=== PATIENT | male | born 1955 | race Caucasian/White ===

== ENCOUNTER 2017-06-09 11:13 | Emergency (ER) | payer OTHER ==
[2017-06-09] MEDS ORDERED: MORPHINE 4 MG/ML SYR ONE ×2 (11:57→15:37)
[2017-06-09] MEDS ORDERED: NA CHLORIDE 0.9% 1,000 ML ONE (11:57)
[2017-06-09] MEDS ORDERED: ONDANSETRON 4 MG/2 ML VIAL ONE (11:57)
[2017-06-09 12:25] LABS: Absolute Lymphocytes (CBC) 2.4 K/uL (0.7-4.9); Absolute Monocytes 0.9 K/uL (0.1-1.3); Absolute Neutrophil 3.5 K/uL (1.8-8.0); Basophils % 1.4 % (0-1.3); Eosinophils % 3.3 % (0-4.4); Hematocrit 43.1 % (39.6-49.0); Lymphocytes % 33.9 % (15.3-44.8); MCH 29.3 pg (27.0-35.0); MPV 7.7 fL (7.6-11.3); Monocytes % 12.9 % (3.3-12.3)
[2017-06-09 12:30] LABS: Protime INR 2.73
[2017-06-09 12:45] LABS: Albumin 4.3 g/dL (3.2-5.5); Bilirubin Direct 0.1 mg/dL (0-0.2); Bilirubin Total 0.6 mg/dL (0.3-1.2); Protein, Total 7.8 g/dL (6.0-8.3)
[2017-06-09] MEDS ORDERED: LORazepam 2 MG/ML VIAL ONE (12:59)
[2017-06-09 14:09] LABS: Urine Blood NEGATIVE (NEG); Urine Glucose NEGATIVE (NEG); Urine Protein NEGATIVE (NEG)
--- NOTE | 2017-06-09 14:23 | RAD REPORT ---
EXAM DESCRIPTION: CTAbdomen Pelvis W Contrast - 06/09/2017 2:10 pm CLINICAL HISTORY: Abdominal pain. COMPARISON: 03/08/2007 TECHNIQUE: Biphasic CT imaging of the abdomen and pelvis was performed with 100 ml non-ionic IV cont rast. All CT scans are performed using dose optimization technique as appropriate and may include automated exposure control or mA/KV adjustment according to patient size. FINDINGS: The lung bases are clear. The liver, spleen, pancreas, adrenal glands and kidneys are within normal limits. No bowel obstruction, free air, free fluid or abscess. 4 cm length of sigmoid colon left lower quadra nt demonstrates moderate pericolonic inflammatory changes. Several diverticula are noted in this juventino on. This is most compatible with acute diverticulitis. The appendix is not identified as a discrete s tructure, however, no secondary findings of appendicitis are identified. No evidence of significant lymphadenopathy. No suspicious bony findings. IMPRESSION: Acute short segment diverticulitis involving the left lower quadrant sigmoid colon. No p eridiverticular abscess.
[2017-06-09] MEDS ORDERED: CEFTRIAXONE/SWI 1gm 2 GM/20 ML SYR ONE (15:10)
[2017-06-09] MEDS ORDERED: METRONIDAZOLE 500mg IVPB 500 MG/100 ML BAG IV ONE (15:10)
--- NOTE | 2017-06-09 15:37 | EDPHYS ---
Physician Documentation [facility] Name: Adelfo Weller Age: 61 yrs Sex: Male : 1955 Arrival Date: 06/09/2017 Time: 11:16 Bed 24 Private MD: Jose Alejandro Powers E ED Physician Jason Veliz HPI: 06/09 14:34 This 61 yrs old Male presents to ER via Ambulatory with complaints of pm1 abdominal pain. 15:00 The patient presents with abdominal pain in the left lower quadrant. Onset: The pm1 symptoms/episode began/occurred 5 day(s) ago. The symptoms do not radiate. Associated signs and symptoms: Pertinent negatives: nausea, vomiting, and diarrhea, chest pain, dysuria, fever, shortness of breath. The symptoms are described as achy, constant. Modifying factors: The symptoms are alleviated by antibiotics. the symptoms are aggravated by touching the area. Severity of pain: in the emergency department the pain has improved. The patient has experienced similar episodes in the past, multiple times. The patient has been recently seen by a physician: Colonoscopy with Dr Rasheed 2 weeks ago. Historical: - Allergies: 11:30 No Known Allergies; tw2 - Home Meds: 12:29 Flagyl Oral [Active]; Levaquin Oral [Active]; Xarelto oral oral [Active]; tizanidine sv oral oral [Active]; gabapentin oral oral [Active]; atorvastatin oral oral [Active]; Stool Softener oral oral [Active]; colon cleanse [Active]; PreserVision AREDS oral oral [Active]; - PMHx: 11:30 Diverticulitis; tw2 15:30 PE; DVT; sv - PSHx: 11:30 Colostomy; tw2 12:29 colostomy reversal; dissection and reconstruction of ventral hernia; sv - Immunization history:: Adult Immunizations up to date. - Social history:: Smoking status: Patient/guardian denies using tobacco, Patient uses nicotine gum. ROS: 15:00 Constitutional: Negative for fever, chills, and weight loss. Fever 5 days ago that pm1 resolved Eyes: Negative for injury, pain, redness, and discharge, ENT: Negative for injury, pain, and discharge, Neck: Negative for injury, pain, and swelling, Cardiovascular: Negative for chest pain, palpitations, and edema, Respiratory: Negative for shortness of breath, cough, wheezing, and pleuritic chest pain. 15:00 Back: Negative for injury and pain, : Negative for injury, bleeding, discharge, and swelling, MS/Extremity: Negative for injury and deformity, Skin: Negative for injury, rash, and discoloration, Neuro: Negative for headache, weakness, numbness, tingling, and seizure. 15:00 Abdomen/GI: Positive for abdominal pain, Negative for nausea, vomiting, and diarrhea. Exam: 15:00 Constitutional: This is a well developed, well nourished patient who is awake, alert, pm1 and in no acute distress. Head/Face: Normocephalic, atraumatic. Eyes: Pupils equal round and reactive to light, extra-ocular motions intact. Lids and lashes normal. Conjunctiva and sclera are non-icteric and not injected. Cornea within normal limits. Periorbital areas with no swelling, redness, or edema. ENT: Nares patent. No nasal discharge, no septal abnormalities noted. Tympanic membranes are normal and external auditory canals are clear. Oropharynx with no redness, swelling, or masses, exudates, or evidence of obstruction, uvula midline. Mucous membranes moist. Neck: Trachea midline, no thyromegaly or masses palpated, and no cervical lymphadenopathy. Supple, full range of motion without nuchal rigidity, or vertebral point tenderness. No Meningismus. Chest/axilla: Normal chest wall appearance and motion. Nontender with no deformity. No lesions are appreciated. Cardiovascular: Regular rate and rhythm with a normal S1 and S2. No gallops, murmurs, or rubs. Normal PMI, no JVD. No pulse deficits. Respiratory: Lungs have equal breath sounds bilaterally, clear to auscultation and percussion. No rales, rhonchi or wheezes noted. No increased work of breathing, no retractions or nasal flaring. 15:00 Back: No spinal tenderness. No costovertebral tenderness. Full range of motion. Skin: Warm, dry with normal turgor. Normal color with no rashes, no lesions, and no evidence of cellulitis. MS/ Extremity: Pulses equal, no cyanosis. Neurovascular intact. Full, normal range of motion. 15:00 Abdomen/GI: Inspection: abdomen appears normal, Bowel sounds: normal, Palpation: soft, mild abdominal tenderness, in the left lower quadrant, mass, is not appreciated, rebound tenderness, is not appreciated. 15:00 Neuro: Orientation: is normal, Motor: is normal, moves all fours. Vital Signs: 11:28 BP 137 / 101; Pulse 77; Resp 18; Temp 98.4(O); Pulse Ox 97% on R/A; Weight 113.4 kg tw2 (R); Height 6 ft. 4 in. (193.04 cm); Pain 7/10; 13:05 BP 150 / 99; Pulse 70; Resp 18; Pulse Ox 99% ; sv 14:16 BP 128 / 83; Pulse 72; Resp 16; Pulse Ox 99% ; tl3 15:29 BP 137 / 97; Pulse 66; Resp 20; Pulse Ox 100% ; sv 16:39 BP 129 / 75; Pulse 60; Resp 17; Pulse Ox 99% on R/A; rk2 11:28 Body Mass Index 30.43 (113.40 kg, 193.04 cm) tw2 MDM: 11:45 Patient medically screened. pm1 15:29 Data reviewed: vital signs. Data interpreted: Pulse oximetry: on room air is 99 %. pm1 Interpretation: normal. Counseling: I had a detailed discussion with the patient and/or guardian regarding: the historical points, exam findings, and any diagnostic results supporting the discharge/admit diagnosis, lab results, radiology results, the need for further work-up and treatment in the hospital. 15:44 Physician consultation: Maureen Tijerina MD was called at 15:44, was contacted at 15:44, pm1 regarding admission, patient's condition, and will see patient in ED. 16:30 Physician consultation: Maureen Tijerina MD Patient was seen in the ER and discharged home pm1 with antibiotics and and pain medications. Dr. Tijerina consulted with Dr. Rasheed and has a follow up with Dr. Rasheed scheduled in a few days. 06/09 11:55 Order name: Basic Metabolic Panel; Complete Time: 12:57 pm1 06/09 11:55 Order name: CBC with Diff; Complete Time: 12:57 pm1 06/09 11:55 Order name: Hepatic Function; Complete Time: 12:57 pm1 06/09 11:55 Order name: Lipase; Complete Time: 12:57 pm1 06/09 11:56 Order name: PT-INR; Complete Time: 12:57 pm1 06/09 11:56 Order name: Ptt, Activated; Complete Time: 12:57 pm06/09 11:55 Order name: CT Abd/Pelvis - W/Contrast; Complete Time: 14:26 pm06/09 14:00 Order name: Urine Dipstick--Ancillary (enter results); Complete Time: 14:26 mw2 06/09 11:55 Order name: IV Saline Lock; Complete Time: 12:20 pm06/09 11:55 Order name: Labs collected and sent; Complete Time: 12:20 pm06/09 11:55 Order name: Urine Dipstick-Ancillary (obtain specimen); Complete Time: 14:52 pm06/09 11:55 Order name: NPO; Complete Time: 12:30 pm1 Administered Medications: 12:11 Drug: NS 0.9% 1000 ml Route: IV; Rate: 1000 ml; Site: left antecubital; sv 13:05 Follow up: Response: No adverse reaction; IV Status: Completed infusion; IV Intake: sv 1000ml 12:11 Drug: Zofran 4 mg Route: IVP; Site: left antecubital; sv 13:05 Follow up: Response: No adverse reaction sv 12:13 Drug: morphine 4 mg Route: IVP; Site: left antecubital; sv 13:05 Follow up: Response: No adverse reaction sv 12:55 Drug: Ativan 0.5 mg Route: IVP; Site: left antecubital; sv 13:15 Follow up: Response: No adverse reaction sv 13:15 Drug: Rocephin 2 grams Route: IV; Rate: calculated rate; Site: left antecubital; sv 13:23 Follow up: Response: No adverse reaction; IV Status: Completed infusion; IV Intake: 20mlsv 15:23 CANCELLED (Duplicate Order): Rocephin - (cefTRIAXone) 2 grams IVPB once over 30 mins; sv (mix in 100 mL NS) 15:23 Drug: Flagyl 500 mg Volume: 100 ml; Route: IVPB; Rate: 200 ml/hr; Infused Over: 30 sv mins; Site: left antecubital; 16:00 Follow up: Response: No adverse reaction; IV Status: Completed infusion rk2 15:41 Drug: morphine 4 mg Route: IVP; Site: left antecubital; sv 16:12 Follow up: Response: No adverse reaction sv Disposition: 17:17 Co-signature as Attending Physician, Jason Veliz MD. rn Disposition: 06/09/17 16:12 Discharged to Home. Impression: Diverticulitis of large intestine without perforation or abscess without bleeding - Stable. Chronic Issue. No woresning. . - Condition is Stable. - Discharge Instructions: Constipation, Adult, Diverticulitis, [id number], Soft-Food Meal Plan, Clear Liquid Diet, [id number]. - Prescriptions for Flagyl 500 mg Oral Tablet - take 1 tablet by ORAL route every 8 hours for 10 days; 30 tablet. Levaquin 500 mg Oral Tablet - take 1 tablet by ORAL route once daily for 10 days; 10 tablet. Tylenol- Codeine #3 300-30 mg Oral Tablet - take 2 tablet by ORAL route every 6 hours As needed; 30 tablet. - Medication Reconciliation Form, Thank You Letter, Antibiotic Education, Prescription Opioid Use form. - Follow up: Yaniv Rasheed MD; When: 1 week. - Problem is chronic. - Symptoms are resolved. Signatures: Dispatcher [employer] Deanna Lyons RN RN Jason Reynolds MD MD rn Marinas, Patrick, [employer] pm1 aMry Juares RN RN tw2 Maureen Tijerina MD MD rp3 Gina Burrows RN RN rk2 Corrections: (The following items were deleted from the chart) 12:29 11:30 PSHx: Hernia repair; tw2 sv 15:23 14:58 Rocephin - (cefTRIAXone) 2 grams IVPB once over 30 mins; (mix in 100 mL NS) sv ordered. pm1 15:23 15:23 Rocephin - (cefTRIAXone) 2 grams IVPB once over 30 mins; (mix in 100 mL NS) sv ordered. sv
--- NOTE | 2017-06-09 15:37 | ER ---
Nurse's Notes [facility] Name: Adelfo Weller Age: 61 yrs Sex: Male : 1955 Arrival Date: 06/09/2017 Time: 11:16 Bed 24 Private MD: Jose Alejandro Powers E Diagnosis: Diverticulitis of large intestine without perforation or abscess without bleeding-Stable. Chronic Issue. No woresning. Presentation: 06/09 11:29 Presenting complaint: Patient states: "its my diverticulitis, its hurts on my left side tw2 really bad, i havent eaten in 2 days". Transition of care: patient was not received from another setting of care. Onset of symptoms was June 09, 2017. Initial Sepsis Screen: Does the patient meet any 2 criteria? No. Patient's initial sepsis screen is negative. Does the patient have a suspected source of infection?. Care prior to arrival: None. 11:29 Method Of Arrival: Ambulatory tw2 11:29 Acuity: ONEAL 3 tw2 Historical: - Allergies: 11:30 No Known Allergies; tw2 - Home Meds: 12:29 Flagyl Oral [Active]; Levaquin Oral [Active]; Xarelto oral oral [Active]; tizanidine sv oral oral [Active]; gabapentin oral oral [Active]; atorvastatin oral oral [Active]; Stool Softener oral oral [Active]; colon cleanse [Active]; PreserVision AREDS oral oral [Active]; - PMHx: 11:30 Diverticulitis; tw2 15:30 PE; DVT; sv - PSHx: 11:30 Colostomy; tw2 12:29 colostomy reversal; dissection and reconstruction of ventral hernia; sv - Immunization history:: Adult Immunizations up to date. - Social history:: Smoking status: Patient/guardian denies using tobacco, Patient uses nicotine gum. Screenin:05 Abuse screen: Denies threats or abuse. Denies injuries from another. Nutritional sv screening: No deficits noted. Tuberculosis screening: No symptoms or risk factors identified. Fall Risk None identified. Assessment: 12:05 General: Appears uncomfortable, obese, well developed, Behavior is calm, cooperative, sv appropriate for age. Pain: Complains of pain in right lower quadrant and left lower quadrant Pain currently is 7 out of 10 on a pain scale. Quality of pain is described as tender, Pain began 2-3 days ago. Is intermittent, Noted to be grimacing, Also complains of decreased appetite. Neuro: Level of Consciousness is awake, alert, obeys commands, Oriented to person, place, time, situation, Moves all extremities. Full function Gait is steady, Speech is normal. Cardiovascular: Patient's skin is warm and dry. Respiratory: Respiratory effort is even, unlabored, Respiratory pattern is regular, symmetrical. GI: Abdomen is round obese, Abd is soft X 4 quads Abdomen is tender to palpation in right lower quadrant and left lower quadrant Reports lower abdominal pain, intolerance of food, "I don't think its ruptured.". Derm: Skin is pink, warm \\T\\ dry. Musculoskeletal: Range of motion: intact in all extremities. 12:55 Reassessment: Patient and/or family updated on plan of care and expected duration. Pain sv level reassessed. Patient is alert, oriented x 3, equal unlabored respirations, skin warm/dry/pink. General: Behavior is anxious, Pt requesting anxiety medication. Informed Stephon ARMED SECURITY GUARD, medication ordered. 13:15 Reassessment: Patient and/or family updated on plan of care and expected duration. Pain sv level reassessed. Patient is alert, oriented x 3, equal unlabored respirations, skin warm/dry/pink. 15:41 Reassessment: Patient and/or family updated on plan of care and expected duration. Pain sv level reassessed. Patient is alert, oriented x 3, equal unlabored respirations, skin warm/dry/pink. 15:41 Pain: Complains of pain in left lower quadrant and right lower quadrant Pain currently sv is 7 out of 10 on a pain scale. Vital Signs: 11:28 BP 137 / 101; Pulse 77; Resp 18; Temp 98.4(O); Pulse Ox 97% on R/A; Weight 113.4 kg tw2 (R); Height 6 ft. 4 in. (193.04 cm); Pain 7/10; 13:05 BP 150 / 99; Pulse 70; Resp 18; Pulse Ox 99% ; sv 14:16 BP 128 / 83; Pulse 72; Resp 16; Pulse Ox 99% ; tl3 15:29 BP 137 / 97; Pulse 66; Resp 20; Pulse Ox 100% ; sv 16:39 BP 129 / 75; Pulse 60; Resp 17; Pulse Ox 99% on R/A; rk2 11:28 Body Mass Index 30.43 (113.40 kg, 193.04 cm) tw2 ED Course: 11:16 Patient arrived in ED. mr 11:16 Yaniv Rasheed MD is Private Physician. mr 11:16 Jose Alejandro Powers MD is Private Physician. mr 11:29 Triage completed. tw2 11:29 Arm band placed on. tw2 11:32 Stephon English NP is PHCP. pm1 11:32 Jason Veliz MD is Attending Physician. pm1 11:43 Deanna Abebe, SHASHANK is Primary Nurse. sv 12:05 Patient has correct armband on for positive identification. Placed in gown. Bed in low sv position. Call light in reach. Pulse ox on. NIBP on. Door closed. Head of bed elevated. 12:10 Initial lab(s) drawn, by me, sent to lab. Inserted saline lock: 20 gauge in left sv antecubital area, using aseptic technique. Blood collected. Flushed left antecubital with 5 ml normal saline. 12:48 Awaiting lab results, Awaiting CT Scan. sv 13:[address] via wheelchair. sv 14:11 CT Abd/Pelvis - W/Contrast In Process Unspecified. EDMS 14:[address]. tl3 15:36 Maureen Tijerina MD is Hospitalizing Provider. pm1 16:11 Yaniv Rasheed MD is Referral Physician. rp3 16:29 Report given to Gina ENCARNACION. sv 16:32 Primary Nurse role handed off by Deanna Abebe RN sv 16:40 No provider procedures requiring assistance completed. IV discontinued. rk2 Administered Medications: 12:11 Drug: NS 0.9% 1000 ml Route: IV; Rate: 1000 ml; Site: left antecubital; sv 13:05 Follow up: Response: No adverse reaction; IV Status: Completed infusion; IV Intake: sv 1000ml 12:11 Drug: Zofran 4 mg Route: IVP; Site: left antecubital; sv 13:05 Follow up: Response: No adverse reaction sv 12:13 Drug: morphine 4 mg Route: IVP; Site: left antecubital; sv 13:05 Follow up: Response: No adverse reaction sv 12:55 Drug: Ativan 0.5 mg Route: IVP; Site: left antecubital; sv 13:15 Follow up: Response: No adverse reaction sv 13:15 Drug: Rocephin 2 grams Route: IV; Rate: calculated rate; Site: left antecubital; sv 13:23 Follow up: Response: No adverse reaction; IV Status: Completed infusion; IV Intake: 20mlsv 15:23 CANCELLED (Duplicate Order): Rocephin - (cefTRIAXone) 2 grams IVPB once over 30 mins; sv (mix in 100 mL NS) 15:23 Drug: Flagyl 500 mg Volume: 100 ml; Route: IVPB; Rate: 200 ml/hr; Infused Over: 30 sv mins; Site: left antecubital; 16:00 Follow up: Response: No adverse reaction; IV Status: Completed infusion rk2 15:41 Drug: morphine 4 mg Route: IVP; Site: left antecubital; sv 16:12 Follow up: Response: No adverse reaction sv Intake: 12:05 PO: 500ml (Contrast); Total: 500ml. sv 13:05 IV: 1000ml; Total: 1500ml. sv 13:23 IV: 20ml; Total: 1520ml. sv 12:[address] and informed Jenny in CT pt finished contrast. sv Outcome: 15:36 Decision to Hospitalize by Provider. pm1 16:12 Discharge ordered by . rp3 16:40 Discharged to home ambulatory. rk2 16:40 Condition: improved 16:40 Discharge instructions given to patient, Prescriptions given X 3. 16:43 Patient left the ED. rk2 Signatures: Dispatcher [employer] EDMS Deanna Abebe RN RN sv Beverly Machuca mr English Stephon, ARMED SECURITY GUARD ARMED SECURITY GUARD pm1 Mary Juares RN RN tw2 Maureen Tijerina MD MD rp3 Gina Burrows RN RN rk2 Bev Patel, SHASHANK RN tl3 Corrections: (The following items were deleted from the chart) 11:31 11:28 Pulse 77bpm; Resp 18bpm; Pulse Ox 97% RA; Temp 98.4F Oral; 113.4 kg Reported; tw2 Height 6 ft. 4 in.; BMI: 30.4; Pain 7/10; tw2 12:29 11:30 PSHx: Hernia repair; tw2 sv 16:31 13:15 Pain: Complains of pain in left lower quadrant and right lower quadrant Pain sv currently is 7 out of 10 on a pain scale. sv 16: 15:41 Reassessment: Patient and/or family updated on plan of care and expected sv duration. Pain level reassessed. Patient is alert, oriented x 3, equal unlabored respirations, skin warm/dry/pink. sv
[2017-06-09 16:48] VITALS: TEMP 98.4
[2017-06-09 16:52] VITALS: BP 129/75; O2SAT 99
== END 2017-06-09 16:43 | disposition home or self-care (01) ==
LOC: ER 11:13
DX: K57.32 Diverticulitis of large intestine without perforation or abscess without bleeding (principal); Z86.718 Personal history of other venous thrombosis and embolism; Z79.01 Long term (current) use of anticoagulants
CPT/HCPCS: 36415; 74177; 80048; 80076; 81003; 83690; 85025; 85610; 85730; J0696; J2405; J7030; 96361; 96365; 96375; 99284

== ENCOUNTER 2019-07-28 09:45 | Emergency (ER) | payer OTHER ==
--- NOTE | 2019-07-28 10:57 | RAD REPORT ---
EXAM DESCRIPTION: RAD - Hand Left 3 View - 07/28/2019 10:31 am CLINICAL HISTORY: Pain;Swelling COMPARISON: None. FINDINGS: No fracture, dislocation or periosteal reaction noted. Mild degenerative change present at the trapezium first metacarpal articulation. Small calcifications adjacent to the ulna styloid are p robably from old trauma. Lateral view shows an approximately 3 centimeter oval isodense mass over the dorsum of the carpal bones. No air or foreign body. No abnormal calcifications. Soft tissues overall are edematous. IMPRESSION: Approximately 3 centimeter oval isodense mass in the soft tissues over the dorsum of the left wrist. Hematoma would be most likely. Degenerative change without fracture.
--- NOTE | 2019-07-28 11:17 | ER ---
Nurse's Notes [facility] Name: Adelfo Weller Age: 63 yrs Sex: Male : 1955 Arrival Date: 07/28/2019 Time: 10:02 Bed 19 Private MD: Diagnosis: Hematoma of left wrist Presentation: 07/27 10:15 Chief complaint: Smash injury to left wrist while trimming trees 10 days ago. PMS hb intact. Coronavirus screen: Proceed with normal triage. Ebola Screen: No symptoms or risks identified at this time. Initial Sepsis Screen: Does the patient meet any 2 criteria? No. Patient's initial sepsis screen is negative. Does the patient have a suspected source of infection? No. Patient's initial sepsis screen is negative. Risk Assessment: Do you want to hurt yourself or someone else? Patient reports no desire to harm self or others. Onset of symptoms was July 18, 2019. 10:15 Method Of Arrival: Ambulatory hb 10:15 Acuity: ONEAL 4 hb Historical: - Allergies: 10:18 No Known Allergies; hb - Home Meds: 10:18 atorvastatin Oral [Active]; colon cleanse [Active]; gabapentin Oral [Active]; hb PreserVision AREDS Oral [Active]; Xarelto Oral [Active]; tizanidine Oral [Active]; Stool Softener Oral [Active]; - PMHx: 10:18 Diverticulitis; DVT; PE; hb - PSHx: 10:18 Colostomy; colostomy reversal; dissection and reconstruction of ventral hernia; hb - Immunization history:: Adult Immunizations up to date. - Social history:: Smoking status: Patient denies any tobacco usage or history of. Screenin:38 Abuse screen: Denies threats or abuse. Nutritional screening: No deficits noted. Tuberculosis screening: No symptoms or risk factors identified. Fall Risk None identified. Assessment: 10:36 General: Appears in no apparent distress. Behavior is calm, cooperative. Pain: Complains of pain in left hand Pain radiates to left wrist and palmar aspect of left forearm Pain currently is 6 out of 10 on a pain scale. Quality of pain is described as aching, Pain began 10 days ago. Neuro: Level of Consciousness is awake, alert, Oriented to person, place, time, situation. Cardiovascular: Capillary refill < 3 seconds Patient's skin is warm and dry. Respiratory: Airway is patent Respiratory effort is even, unlabored. GI: Derm: Skin is intact, is healthy with good turgor. Musculoskeletal: Circulation, motion, and sensation intact. Capillary refill < 3 seconds, Swelling present in left hand Reports pain in left hand since 10 days ago. Vital Signs: 10:15 BP 150 / 89; Pulse 86; Resp 16; Temp 97.9; Pulse Ox 100% ; Weight 113.4 kg; Height 6 hb ft. 4 in. (193.04 cm); Pain 6/10; 10:15 Body Mass Index 30.43 (113.40 kg, 193.04 cm) hb ED Course: 10:02 Patient arrived in ED. fj1 10:02 [facility] kb 10:02 Evaristo French MD is Attending Physician. kb 10:17 Triage completed. hb 10:18 Arm band placed on. hb 10:31 Hand Left 3 View XRAY In Process Unspecified. EDMS 10:36 Nataly Vazquez, RN is Primary Nurse. 10:38 Patient has correct armband on for positive identification. Bed in low position. Call light in reach. Side rails up X 1. Pulse ox on. NIBP on. 11:30 No provider procedures requiring assistance completed. Patient did not have IV access ah during this emergency room visit. 11:54 UPPER EXTREMITY VENOUS UNILATE In Process Unspecified. EDMS Administered Medications: No medications were administered Outcome: 11:17 Discharge ordered by . kb 11:30 Discharged to home ambulatory. 11:30 Condition: good 11:30 Discharge instructions given to patient, Instructed on discharge instructions, follow up and referral plans. Demonstrated understanding of instructions, follow-up care. 11:45 Patient left the ED. Signatures: Dispatcher [employer] EDMS Alexandra Lopez FNP-C FNP-Ckb Baxter, Heather, RN RN Peterson Meneses fj Nataly Vazquez RN RN
--- NOTE | 2019-07-28 11:17 | EDPHYS ---
Physician Documentation [facility] Name: Adelfo Weller Age: 63 yrs Sex: Male : 1955 Arrival Date: 07/28/2019 Time: 10:02 Bed 19 Private MD: ED Physician Evaristo French HPI: 07/27 10:43 This 63 yrs old Male presents to ER via Ambulatory with complaints of Hand kb Swelling. 10:43 The patient or guardian reports injury, pain, swelling. The complaints affect the kb dorsum of left hand and left wrist. Context: The problem was sustained at an office, resulted from a crush injury, trailer and tree limb. Onset: The symptoms/episode began/occurred 10 day(s) ago. Modifying factors: The symptoms are alleviated by nothing, the symptoms are aggravated by nothing. Associated signs and symptoms: The patient has no apparent associated signs or symptoms. Severity of symptoms: At their worst the symptoms were moderate, in the emergency department the symptoms have improved. The patient has not experienced similar symptoms in the past. The patient has not recently seen a physician. Pt reports he was trimming a tree 10 days ago and his hand got smashed between a limb and the trailer. States the swelling has gone down some, but he still has swelling to left wrist and hand so he wanted to get it checked out. States "I think it is just a hematoma." Full ROM to hand and wrist without distress. Historical: - Allergies: 10:18 No Known Allergies; hb - Home Meds: 10:18 atorvastatin Oral [Active]; colon cleanse [Active]; gabapentin Oral [Active]; hb PreserVision AREDS Oral [Active]; Xarelto Oral [Active]; tizanidine Oral [Active]; Stool Softener Oral [Active]; - PMHx: 10:18 Diverticulitis; DVT; PE; hb - PSHx: 10:18 Colostomy; colostomy reversal; dissection and reconstruction of ventral hernia; hb - Immunization history:: Adult Immunizations up to date. - Social history:: Smoking status: Patient denies any tobacco usage or history of. ROS: 10:41 Constitutional: Negative for fever, chills, and weight loss, Cardiovascular: Negative kb for chest pain, palpitations, and edema, Respiratory: Negative for shortness of breath, cough, wheezing, and pleuritic chest pain, Abdomen/GI: Negative for abdominal pain, nausea, vomiting, diarrhea, and constipation, Back: Negative for injury and pain, Neuro: Negative for headache, weakness, numbness, tingling, and seizure. 10:41 MS/extremity: Positive for pain, swelling, of the palmar aspect of left forearm and left wrist. Exam: 10:41 Constitutional: This is a well developed, well nourished patient who is awake, alert, kb and in no acute distress. Head/Face: Normocephalic, atraumatic. Chest/axilla: Normal chest wall appearance and motion. Nontender with no deformity. No lesions are appreciated. Cardiovascular: Regular rate and rhythm with a normal S1 and S2. No gallops, murmurs, or rubs. Normal PMI, no JVD. No pulse deficits. Respiratory: Lungs have equal breath sounds bilaterally, clear to auscultation and percussion. No rales, rhonchi or wheezes noted. No increased work of breathing, no retractions or nasal flaring. Abdomen/GI: Soft, non-tender, with normal bowel sounds. No distension or tympany. No guarding or rebound. No evidence of tenderness throughout. Neuro: Awake and alert, GCS 15, oriented to person, place, time, and situation. Cranial nerves II-XII grossly intact. Motor strength 5/5 in all extremities. Sensory grossly intact. Cerebellar exam normal. Normal gait. 10:41 Musculoskeletal/extremity: Extremities: grossly normal except: noted in the dorsum of left hand and left wrist: pain, swelling, hematoma, ROM: intact in all extremities, Circulation is intact in all extremities. Sensation intact. Vital Signs: 10:15 BP 150 / 89; Pulse 86; Resp 16; Temp 97.9; Pulse Ox 100% ; Weight 113.4 kg; Height 6 hb ft. 4 in. (193.04 cm); Pain 6/10; 10:15 Body Mass Index 30.43 (113.40 kg, 193.04 cm) hb MDM: 10:13 Patient medically screened. kb 10:40 Data reviewed: vital signs, nurses notes. Data interpreted: Pulse oximetry: on room air kb is 100 %. Interpretation: normal. 11:16 Counseling: I had a detailed discussion with the patient and/or guardian regarding: the kb historical points, exam findings, and any diagnostic results supporting the discharge/admit diagnosis, radiology results, the need for outpatient follow up, a family practitioner, to return to the emergency department if symptoms worsen or persist or if there are any questions or concerns that arise at home. 07/27 10:13 Order name: Hand Left 3 View XRAY; Complete Time: 11:02 kb 07/27 11:41 Order name: UPPER EXTREMITY VENOUS UNILATE EDMI Administered Medications: No medications were administered Disposition: 11:54 Co-signature as Attending Physician, Evaristo French MD I agree with the assessment and kdr plan of care. Disposition: 07/28/19 11:17 Discharged to Home. Impression: Hematoma of left wrist. - Condition is Stable. - Discharge Instructions: Hematoma, [id number]. - Medication Reconciliation Form, Thank You Letter, Antibiotic Education, Prescription Opioid Use form. - Follow up: Emergency Department; When: As needed; Reason: Worsening of condition. Follow up: Private Physician; When: 2 - 3 days; Reason: Recheck today's complaints, Continuance of care, Re-evaluation by your physician. Signatures: Dispatcher [employer] [facility] Alexandra Lopez, POUNCING MACHINE OPERATOR-C POUNCING MACHINE OPERATOR-Ckb Evaristo French MD MD [facility] Urszula Castorena RN RN Nataly Vazquez RN RN Corrections: (The following items were deleted from the chart) 11:41 10:14 Extremity Venous [employer]+[email or web address].RAD.BRZ ordered. [facility] 11:45 11:17 07/28/2019 11:17 Discharged to Home. Impression: Hematoma of left wrist. Condition is Stable. Forms are Medication Reconciliation Form, Thank You Letter, Antibiotic Education, Prescription Opioid Use. Follow up: Emergency Department; When: As needed; Reason: Worsening of condition. Follow up: Private Physician; When: 2 - 3 days; Reason: Recheck today's complaints, Continuance of care, Re-evaluation by your physician. kb
[2019-07-28 11:51] VITALS: BP 150/89; TEMP 97.9; O2SAT 100
--- NOTE | 2019-07-28 12:01 | RAD REPORT ---
EXAM DESCRIPTION: US - UPPER EXTREMITY VENOUS UNILATE - 07/28/2019 11:54 am CLINICAL HISTORY: Left arm pain and swelling COMPARISON: None. TECHNIQUE: Real-time sonographic evaluation of the left upper extremity deep venous systems was perf ormed. FINDINGS: Normal compressibility, flow augmentation, phasic flow and spontaneous flow are identified in the left upper extremity deep venous system. No intraluminal filling defects seen. Internal jugul ar and subclavian veins are normal as well. In the soft tissues over the dorsum of the wrist a 4 centimeter oval hypoechoic focus is present. A f ew small adjacent hypoechoic foci seen. This is believed to be the correlate to the plain film findin g. Old hematoma is most likely. IMPRESSION: No DVT in the left upper extremity. Approximately 4 centimeter oval hypoechoic mass over the dorsum of the wrist believed to be old hemat yash.
== END 2019-07-28 11:45 | disposition home or self-care (01) ==
LOC: ER 09:45
DX: S60.212A Contusion of left wrist, initial encounter (principal); W23.0XXA Caught, crushed, jammed, or pinched between moving objects, initial encounter; Y93.89 Activity, other specified; Y92.89 Other specified places as the place of occurrence of the external cause; Z86.718 Personal history of other venous thrombosis and embolism; Z79.01 Long term (current) use of anticoagulants
CPT/HCPCS: 93971; 99283

== ENCOUNTER 2020-10-24 06:22 | Day surgery (SDC) | payer OTHER ==
[2020-10-24] MEDS ORDERED: Ringers Lactate 1,000 ML IV ONE (07:10)
[2020-10-24] MEDS ORDERED: propofoL 200 MG/20 ML VIAL IV ONE (07:49)
[2020-10-24] MEDS ORDERED: LIDOCAINE 1% MPF 5 ML VIAL ONE (07:50)
--- NOTE | 2020-10-24 08:32 | ENDO RPT ---
[address], [address] COLONOSCOPY PROCEDURE REPORT EXAM DATE: 10/24/2020 PATIENT NAME: Adelfo Weller MR #: [id number] BIRTHDATE: 1955 ATTENDING: Yaniv Rasheed MD STATUS: outpatient PIECE GOODS PACKER: Eliane Argueta RN and Greer Bush INDICATIONS: The patient is a 65 yr old Male here for a colonoscopy due to personal history of colon polyps, personal history of colon polyps, personal history of colon polyps, and colon cancer screening PROCEDURE PERFORMED: Colonoscopy MEDICATIONS: Per Anesthesia. ESTIMATED BLOOD LOSS: None CONSENT: The patient understands the risks and benefits of the procedure and understands that these risks include, but are not limited to: sedation, allergic reaction, infection, perforation and/or bleeding. Alternative means of evaluation and treatment include, among others: physical exam, x-rays, and/or surgical intervention. The patient elects to proceed with this endoscopic procedure. DESCRIPTION OF PROCEDURE: During intra-op preparation period all mechanical medical equipment was checked for proper function. Hand hygiene and appropriate measures for infection prevention was taken. Procedure, possible complications, alternatives including, but not limited to possibility of bleeding, perforation, tear, infection, sepsis, need for surgery, need for blood transfusion, were explained to the patient. After the risks, benefits and alternatives of the procedure were thoroughly explained, Informed consent was verified, confirmed and timeout was successfully executed by the treatment team. The patient was placed in the left lateral position. A digital rectal exam was performed and revealed external hemorrhoids. After appropriate level of anesthesia, the scope was passed. The EC-[id number] ([id number]) endoscope was introduced through the anus and advanced to the cecum, which was identified by transillumination from the light source, the appendix, and the ileocecal valve. The quality of the prep was fair. The instrument was then slowly withdrawn as the colon was fully examined. Scope withdrawal time was . COLON FINDINGS: Diverticula was found throughout the entire examined colon. The opening was medium sized. Moderate sized internal and external hemorrhoids were found. Retroflexed views revealed no abnormalities. The scope was then completely withdrawn from the patient and the procedure terminated. ADVERSE EVENTS: There were no complications. IMPRESSIONS: 1. Diverticula throughout the entire examined colon 2. Moderate sized internal and external hemorrhoids RECOMMENDATIONS: 1. follow-up: office 1-2 week(s) 2. no seeds in diet RECALL: Return in 3-5 year(s) for Colonoscopy. Yaniv Rasheed MD eSigned: Yaniv Rasheed MD 10/24/2020 8:31 AM cc: Yaniv Rasheed M.D. CPT CODES: ICD9 CODES: PATIENT NAME: JaneeAdelfo MR#: [id number]
[2020-10-24 08:40] VITALS: BP 117/95; TEMP 97.9; O2SAT 99
== END 2020-10-24 08:46 | disposition home or self-care (01) ==
LOC: OR 06:22
PROVIDERS: ATTEND Surgery
PROC: 0DJD8ZZ Inspection of Lower Intestinal Tract, Via Natural or Artificial Opening Endoscopic (ICD-10-PCS; principal; 2020-10-24 07:30)
DX: Z86.010 Personal history of colon polyps (principal); K64.4 Residual hemorrhoidal skin tags; K64.8 Other hemorrhoids; K57.30 Diverticulosis of large intestine without perforation or abscess without bleeding
CPT/HCPCS: 45378; U0003; J2704; J7120

== ENCOUNTER 2022-10-13 11:31 | Inpatient (IN) | payer OTHER ==
--- OUTSIDE RECORDS SUMMARY | 2022-10-13 11:35 | XMS REPORT | Continuity of Care Document ---
:1955 Author Organization [facility] t Address [address] [facility] [address] [place] [address] Care Team Providers Name Role Phone Jose Alejandro Powers Attending Clinician Unavailable Cherelle Pickett Attending Clinician Shahab Attending Clinician Unavailable REY Attending Clinician Unavailable Alisa Leavitt Attending Clinician Trung Attending Clinician Unavailable Shahab Admitting Clinician Unavailable REY Admitting Clinician Unavailable Trung Admitting Clinician Unavailable Payers Payer Name Policy Type Policy Effective Date Expiration Date Sour ce Number [facility] [id number] 2020 (MEDICARE 00:00:00 REPLACEMENT HMO) [place] [id number] Common Spi rit [facility] Problems Condition Condition Condition Status Onset Resolution Last Treating Co mments Source Name Details Category Date Date Treatment Clinician Date [id number] Testicular Problem Active Co mmon hypofuncti Spirit on - [facility] [id number] Hypogonadi Problem Active Com mon sm in male [facility] [id number] ED Problem Active Common (erectile Spirit dysfunctio - [facility] n[facility] of [facility] [id number] Family Problem Active Common history of Spirit prostate - [facility] in [facility] [id number] Low Problem Active Common testostero Spirit ne [facility] [id number] Elevated Problem Active Comm on PSA [facility] [id number] BPH loc w Problem Active Com mon urin Spirit obs/TS [facility] Allergies, Adverse Reactions, Alerts This patient has no known allergies or adverse reactions. Social History Social Habit Start Date Stop Date Quantity Comments Source History of Tobacco Use Co mmon [facility] Sex Assigned At Com mon [facility] Smoking Status Start Date Stop Date Source Never Smoker Common [facility] Medications Ordered Filled Start Stop Current Ordering Indication Dosage Frequency Signature Comments Components Source Medication Medication Date Date Medication? Clinician (SIG) Name Name Anastrozole Anastrozole 2020-02 No Anastrozol 1 MG 1 MG 1-18 -28 e 1 MG 00:00: 00:00 00 :00 Anastrozole Anastrozole 2020-02- No Anastrozol 1 MG 1 MG 18 -18 e 1 MG 00:00: 00:00 00 :00 Flomax 0.4 Flomax 0.4 2022- No 1{capsu QD Flomax 0.4 MG MG 8-30 05-28 le} MG 00:00: 00:00 00 :00 Flomax 0.4 Flomax 0.4 2021- No 1{capsu QD Flomax 0.4 MG MG 8-30 06-16 le} MG 00:00: 00:00 00 :00 Centrum Centrum No Centrum Silver Silver Silver Adult 50+ - Adult 50+ - Adult 50+ - Xarelto 15 Xarelto 15 No 1{table QD Xarelto 15 MG MG t_with_ MG food} Pravastatin Pravastatin No 1{table QD Pravastati Sodium 20 Sodium 20 t} n Sodium MG MG 20 MG Stool Stool No 1{capsu QD Stool Softener Softener le_as_n Softener 100 MG 100 MG eeded} 100 MG Magnesium Magnesium No 1{capsu QD Magnesium 300 MG 300 MG le_with 300 MG _a_meal } Iron 325 Iron 325 No 1{table QD Iron 325 (65 Fe) MG (65 Fe) MG t} (65 Fe) MG PreserVisio PreserVisio No PreserVisi n AREDS - n AREDS - on AREDS - Glucosamine Glucosamine No Glucosamin Chond Cmp Chond Cmp e Chond Advanced - Advanced - Cmp Advanced - Colon Colon No Colon Cleanse - Cleanse - Cleanse - Glucosamine Glucosamine No Glucosamin Chond Cmp Chond Cmp e Chond Advanced - Advanced - Cmp Advanced - Stool Stool No 1{capsu QD Stool Softener Softener le_as_n Softener 100 MG 100 MG eeded} 100 MG Iron 325 Iron 325 No 1{table QD Iron 325 (65 Fe) MG (65 Fe) MG t} (65 Fe) MG Pravastatin Pravastatin No 1{table QD Pravastati Sodium 20 Sodium 20 t} n Sodium MG MG 20 MG Xarelto 15 Xarelto 15 No 1{table QD Xarelto 15 MG MG t_with_ MG food} PreserVisio PreserVisio No PreserVisi n AREDS - n AREDS - on AREDS - Colon Colon No Colon Cleanse - Cleanse - Cleanse - Magnesium Magnesium No 1{capsu QD Magnesium 300 MG 300 MG le_with 300 MG _a_meal } Centrum Centrum No Centrum Silver Silver Silver Adult 50+ - Adult 50+ - Adult 50+ - Vital Signs Vital Name Observation Time Observation Value Comments Source height 2021-07-18 11:45:00 74 [in_i] [facility] weight 2021-07-18 11:45:00 252 [lb_av] [facility] temperature 2021-07-18 11:45:00 98.4 [degF] [facility] bmi 2021-07-18 11:45:00 32.35 kg/m2 [facility] oximetry 2021-07-18 11:45:00 99 % [facility] respiratory rate 2021-07-18 11:45:00 16 /min Comm on Spirit - [facility] blood pressure 2021-07-18 11:45:00 120 mm[Hg] Common [facility] - systolic [facility] blood pressure 2021-07-18 11:45:00 84 mm[Hg] [facility] - diastolic [facility] height 2021-01-03 15:45:00 74 [in_i] [facility] weight 2021-01-03 15:45:00 225 [lb_av] [facility] temperature 2021-01-03 15:45:00 97.4 [degF] Common S [facility] bmi 2021-01-03 15:45:00 28.89 kg/m2 Common S [facility] oximetry 2021-01-03 15:45:00 95 % Common S [facility] blood pressure 2021-01-03 15:45:00 129 mm[Hg] Common [facility] - systolic [facility] blood pressure 2021-01-03 15:45:00 82 mm[Hg] Common [facility] - diastolic [facility] Procedures This patient has no known procedures. Encounters Start End Encounter Admission Attending Care Care Encounter Source Date/Time Date/Time Type Type Clinicians Facility Department ID 2022-05-08 Outpatient Powers, STLMLC [facility] [id number] Common 08:22:01 Jose Alejandro Alonso [facility] 2022-04-30 Outpatient Powers, STLMLC [facility] [id number] Common 10:29:01 Jose Alejandro Bryant [facility] 2021-03-13 Outpatient Powers, STLMLC [facility] [id number] Common 14:15:28 Jose Alejandro [id number] [facility] 2021-10-22 2021-10-22 SLOANE Villarreal [id number] CLAC [id number] [facility] 13:30:00 14:30:00 Piyush [id number] [facility] [id number] 2021-10-08 2021-10-08 Outpatient Williams_V DMG DMG [id number] [facility] 00:00:00 00:00:00 [facility] 2021-10-08 2021-10-08 Outpatient Williams_V DMG DMG 3149 [facility] 00:00:00 00:00:00 0823 [facility] 2021-08-30 2021-08-30 Outpatient CURRY_S DMG [facility] [id number] [facility] 07:15:00 07:15:00 0715 [facility] 2021-07-18 2021-07-18 OFFICE STLMLC STLC [id number] Co mmon 00:00:00 00:00:00 VISIT Pierre ESTAB PT - [facility] LEVEL [address] [facility] 2021-03-01 2021-03-01 SLOANE Alisa [id number] CLAC [id number] [facility] 14:30:00 15:30:00 Jarred [id number] [facility] [id number] 2021-01-22 2021-01-22 Outpatient JARRED_Dilcia DÍAZ [id number] [facility] 05:31:00 05:31:00 1207 [facility] 2021-01-03 2021-01-03 OFFICE [facility] [id number] Co mmon 00:00:00 00:00:00 VISIT Pierre CASTANO PT - [facility] LEVEL 4 [facility] 2020-09-19 2020-09-19 Outpatient Fred_Trell DÍAZ [id number] [facility] 09:53:00 09:53:00 0804 [facility] Results This patient has no known results.
[2022-10-13 13:42] LABS: Absolute Lymphocytes (CBC) 3.3 K/uL (0.7-4.9); Hematocrit 41.7 % (39.6-49.0); Lymphocytes % 24.2 % (15.3-44.8); MCV 88.6 fL (80-100); Platelets 395 thou/uL (152-406); RBC Red Blood Cell Count 4.71 M/uL (4.33-5.43)
[2022-10-13] MEDS ORDERED: NA CHLORIDE 0.9% 1,000 ML ONE (13:43)
[2022-10-13] MEDS ORDERED: ONDANSETRON 4 MG/2 ML VIAL ONE (13:43)
[2022-10-13 13:58] LABS: Albumin 3.3 g/dL (3.4-5.0); Bilirubin Total 0.4 mg/dL (0.2-1.0); Protein, Total 7.3 g/dL (6.4-8.2)
[2022-10-13 14:08] LABS: Potassium 3.8 mEq/L (3.5-5.1)
--- NOTE | 2022-10-13 15:08 | RAD REPORT ---
EXAM DESCRIPTION: CTAbdomen Pelvis W Contrast - 10/13/2022 2:40 pm CLINICAL HISTORY: Abdominal pain. Abd pain;Nausea / vomiting COMPARISON: Abdomen Pelvis W Contrast dated 06/09/2017; CT ABD PELVIS W CONTRAST dated 03/08/2007 TECHNIQUE: Biphasic CT imaging of the abdomen and pelvis was performed with 100 ml non-ionic IV cont rast. All CT scans are performed using dose optimization technique as appropriate and may include automated exposure control or mA/KV adjustment according to patient size. FINDINGS: The lung bases are clear.Small fat containing umbilical hernia. The is diffusely fatty. Spleen, pancreas, adrenal glands and kidneys are within normal limits. No bowel obstruction, free air, free fluid or abscess. 5 cm length of the left transverse colon shows focal inflammation along one wall, the medial wall. A diverticulum is likely present in this region as well. The adjacent fat is reticulated. The appendix is normal. No evidence of significant lymphad enopathy. No suspicious bony findings. IMPRESSION: 5 cm length of transverse colon shows focal wall thickening and inflammation along the m edial wall. This could be inflammatory secondary to diverticulitis or related to a mass. Recommend fo llow-up colonoscopy.
--- NOTE | 2022-10-13 15:37 | EDPHYS ---
Physician Documentation [facility] Name: Adelfo Weller Age: 67 yrs Sex: Male : 1955 Arrival Date: 10/13/2022 Time: 11:31 Bed 9 Private MD: ED Physician Jason Veliz HPI: 10/13 15:02 This 67 yrs old Male presents to ER via Ambulatory with complaints of Abdominal Pain. rn 15:02 The patient presents with abdominal pain in the left lower quadrant. Onset: The rn symptoms/episode began/occurred 1 month(s) ago. The symptoms do not radiate. Associated signs and symptoms: Pertinent positives: nausea and vomiting, constipation, Pertinent negatives: fever. The symptoms are described as intermittent, sharp. Modifying factors: The symptoms are alleviated by nothing, the symptoms are aggravated by touching the area. Severity of pain: At its worst the pain was moderate in the emergency department the pain is unchanged. The patient has experienced similar episodes in the past. Pt reports concern of diverticulitis, + nausea/vomiting/abd pain intermittent for a month but worse over last week. No fever. + LLQ abd pain. NOt having normal bowel movements. . Historical: - Allergies: 12:16 No Known Allergies; iw - PMHx: 12:16 Diverticulitis; DVT; PE; iw - PSHx: 12:16 abdominal reconstructive; hernia; iw - Immunization history:: Adult Immunizations up to date. - Social history:: Smoking status: Patient/guardian denies using tobacco, the patient reports quitting approximately 20 years ago. - Family history:: not pertinent. - Hospitalizations: : No recent hospitalization is reported. ROS: 15:02 Constitutional: Negative for fever, chills, and weight loss, Eyes: Negative for injury, rn pain, redness, and discharge, Neck: Negative for injury, pain, and swelling, Cardiovascular: Negative for chest pain, palpitations, and edema, Respiratory: Negative for shortness of breath, cough, wheezing, and pleuritic chest pain, Abdomen/GI: + abd pain and nausea/vomiting MS/Extremity: Negative for injury and deformity, Skin: Negative for injury, rash, and discoloration, Neuro: Negative for headache, weakness, numbness, tingling, and seizure. Exam: 15:02 Constitutional: This is a well developed, well nourished patient who is awake, alert, rn and in no acute distress. Cardiovascular: Regular rate and rhythm with a normal S1 and S2. No gallops, murmurs, or rubs. Normal PMI, no JVD. No pulse deficits. Respiratory: Lungs have equal breath sounds bilaterally, clear to auscultation and percussion. No rales, rhonchi or wheezes noted. No increased work of breathing, no retractions or nasal flaring. Abdomen/GI: soft, + LLQ tenderness and mid abd tenderness Skin: Warm, dry MS/ Extremity: Pulses equal, no cyanosis. Neurovascular intact. Full, normal range of motion. Equal circumference Neuro: Awake and alert, GCS 15 Vital Signs: 12:15 BP 132 / 99; Pulse 91; Resp 18; Temp 98.3; Pulse Ox 97% on R/A; Weight 115.67 kg; iw Height 6 ft. 4 in. ; Pain 8/10; 18:00 BP 149 / 78; Pulse 69; Resp 17; Pulse Ox 99% on R/A; me1 12:15 Body Mass Index 31.04 (115.67 kg, 193.04 cm) iw 12:15 Pain Scale: Adult iw MDM: 12:18 Patient medically screened. rn 15:34 Differential diagnosis: bowel obstruction, diverticulitis, gastritis, gastroesophageal rn reflux disease, non-specific abd pain, pancreatitis, Peptic Ulcer Disease, Ureterolithiasis. Data reviewed: vital signs, nurses notes, lab test result(s), radiologic studies, CT scan, and as a result, I will admit patient. Consideration of Admission/Observation Patient was admitted/placed on observation. Escalation of care including admission/observation considered. Management of patient was discussed with the following: Hospitalist: . Counseling: I had a detailed discussion with the patient and/or guardian regarding the historical points, exam findings, and any diagnostic results supporting the discharge/admit diagnosis, lab results, radiology results, the need for further work-up and treatment in the hospital. Response to treatment: the patient's symptoms have mildly improved after treatment, and as a result, I will admit patient. ED course: Pt with diverticulitis and pancreatitis, just got of of ozempic, will admit for pain control, and further treatment. . 10/13 12:22 Order name: CBC with Diff; Complete Time: 15:02 rn 08/28 12:22 Order name: CMP; Complete Time: 15:02 rn 10/13 12:22 Order name: Lipase; Complete Time: 15:02 rn 10/13 12:22 Order name: CT Abd/Pelvis - IV Contrast Only; Complete Time: 15:18 rn 10/13 12:22 Order name: IV Saline Lock; Complete Time: 13:29 rn 10/13 12:22 Order name: Labs collected and sent; Complete Time: 13:29 rn Administered Medications: 13:51 Drug: NS 0.9% IV 1000 ml Route: IV; Rate: 1 bolus; Site: right wrist; cm10 16:18 Follow up: IV Status: Completed infusion me1 13:51 Drug: Ondansetron IVP 4 mg Route: IVP; Site: right wrist; cm10 14:51 Follow up: Response: No adverse reaction me1 16:17 Follow up: Response: No adverse reaction me1 18:47 Drug: Ciprofloxacin PO 500 mg Route: PO; me1 19:00 Follow up: Response: No adverse reaction iw 18:47 Drug: metroNIDAZOLE PO 500 mg Route: PO; me1 19:00 Follow up: Response: No adverse reaction iw 10/14 07:43 Not Given (Other Intervention Used): Ciprofloxacin IVPB 400 mg 200 ml IVPB once over 60 iw mins 07:43 Not Given (Other Intervention Used): metroNIDAZOLE IVPB 500 mg 100 ml IVPB at 200 ml/hr iw once over 30 mins 07:47 Not Given (Other Intervention Used): morphine IVP or IV 4 mg IVP once over 4 mins iw Disposition Summary: 10/13/22 15:37 Hospitalization Ordered Hospitalization Status: Inpatient Admission rn Provider: Kevin Marin rn [facility] rn Condition: Stable rn Problem: new rn Symptoms: have improved rn Bed/Room Type: Standard rn Room Assignment: 424(10/13/22 17:42) bd Diagnosis - Diverticulitis of large intestine without perforation or abscess without bleeding rn - Acute pancreatitis without necrosis or infection, unspecified rn Forms: - Medication Reconciliation Form rn - SBAR form rn - Leadership Thank You Letter rn Signatures: Dispatcher [employer] Amelia Carranza Irene, RN RN iw Nieto, Roman, MD MD rn Martinez, Clarissa, RN RN cm10 Ema Daniels RN RN me1 Corrections: (The following items were deleted from the chart) 10/13 17:42 15:37 rn ayush
--- NOTE | 2022-10-13 15:37 | ER ---
Nurse's Notes [facility] Name: Adelfo Weller Age: 67 yrs Sex: Male : 1955 Arrival Date: 10/13/2022 Time: 11:31 Bed 9 Private MD: Diagnosis: Diverticulitis of large intestine without perforation or abscess without bleeding;Acute pancreatitis without necrosis or infection, unspecified Presentation: 10/13 12:15 Chief complaint: Patient states: "Last night, I started having abdominal pain that iw radiates to my back. I also having N/V/D. I have a history of Diverticulitis and this feels like it". Coronavirus screen: At this time, the client does not indicate any symptoms associated with coronavirus-19. Ebola Screen: No symptoms or risks identified at this time. Initial Sepsis Screen: Does the patient meet any 2 criteria? No. Patient's initial sepsis screen is negative. Does the patient have a suspected source of infection? No. Patient's initial sepsis screen is negative. Risk Assessment: Do you want to hurt yourself or someone else? Patient reports no desire to harm self or others. Onset of symptoms was October 13, 2022. 12:15 Method Of Arrival: Ambulatory iw 12:15 Acuity: ONEAL 3 iw Triage Assessment: 12:18 General: Appears uncomfortable, Behavior is calm, appropriate for age. Pain: Complains iw of pain in abdomen Pain radiates to back Pain currently is 8 out of 10 on a pain scale. Quality of pain is described as pressure, Pain began 1 day ago. GI: Abdomen is round non-distended, Reports diarrhea, nausea, vomiting. Derm: Skin is pink, warm \\T\\ dry. Musculoskeletal: Range of motion: intact in all extremities. Historical: - Allergies: 12:16 No Known Allergies; iw - PMHx: 12:16 Diverticulitis; DVT; PE; iw - PSHx: 12:16 abdominal reconstructive; hernia; iw - Immunization history:: Adult Immunizations up to date. - Social history:: Smoking status: Patient/guardian denies using tobacco, the patient reports quitting approximately 20 years ago. - Family history:: not pertinent. - Hospitalizations: : No recent hospitalization is reported. Screenin:00 [facility] ED Fall Risk Assessment (Adult) History of falling in the last 3 months, cm10 including since admission No falls in past 3 months (0 pts) Confusion or Disorientation No (0 pts) Intoxicated or Sedated No (0 pts) Impaired Gait No (0 pts) Mobility Assist Device Used No (0 pt) Altered Elimination No (0 pt) Score/Fall Risk Level 0 - 2 = Low Risk Oriented to surroundings, Maintained a safe environment. Abuse screen: Denies threats or abuse. Denies injuries from another. Nutritional screening: No deficits noted. Tuberculosis screening: No symptoms or risk factors identified. Assessment: 18:01 General: Appears in no apparent distress. comfortable, Behavior is calm, cooperative. cm10 Neuro: No deficits noted. Level of Consciousness is awake, alert, obeys commands, Oriented to person, place, time, situation. Respiratory: No deficits noted. Airway is patent Respiratory effort is even, unlabored, Respiratory pattern is regular, symmetrical. GI: Reports lower abdominal pain, upper abdominal pain. 18:10 General: IV infiltrated, unable to successfully gain IV access at this time. . me1 18:11 General:. me1 18:41 General: Per warehouse pricing and inventory clerk, Onel, patient is ok to go up to the room without IV me1 access at this time. . Vital Signs: 12:15 BP 132 / 99; Pulse 91; Resp 18; Temp 98.3; Pulse Ox 97% on R/A; Weight 115.67 kg; iw Height 6 ft. 4 in. ; Pain 8/10; 18:00 BP 149 / 78; Pulse 69; Resp 17; Pulse Ox 99% on R/A; me1 12:15 Body Mass Index 31.04 (115.67 kg, 193.04 cm) iw 12:15 Pain Scale: Adult iw ED Course: 11:34 Patient arrived in ED. im 12:16 Triage completed. iw 12:16 Arm band placed on. iw 12:17 Jason Veliz MD is Attending Physician. rn 13:15 Missed attempt(s): 24 gauge in right upper arm. Bleeding controlled, band aid applied, ds4 catheter tip intact. 13:29 CBC with Diff Sent. cm10 13:29 CMP Sent. cm10 13:29 Lipase Sent. cm10 13:29 Initial lab(s) drawn, by ia, sent to lab. Inserted saline lock: 20 gauge in right cm10 wrist, using aseptic technique. Blood collected. 14:39 IV discontinued, intact, bleeding controlled, No redness/swelling at site. Pressure cm10 dressing applied. 14:40 Inserted saline lock: 20 gauge in right upper arm, using aseptic technique. cm10 14:42 CT Abd/Pelvis - IV Contrast Only In Process Unspecified. EDMS 15:12 Myra Pickett, RN is Primary Nurse. iw 15:36 Kevin Marin MD is Hospitalizing Provider. rn 18:46 No provider procedures requiring assistance completed. iw Administered Medications: 13:51 Drug: NS 0.9% IV 1000 ml Route: IV; Rate: 1 bolus; Site: right wrist; cm10 16:18 Follow up: IV Status: Completed infusion me1 13:51 Drug: Ondansetron IVP 4 mg Route: IVP; Site: right wrist; cm10 14:51 Follow up: Response: No adverse reaction me1 16:17 Follow up: Response: No adverse reaction me1 18:47 Drug: Ciprofloxacin PO 500 mg Route: PO; me1 19:00 Follow up: Response: No adverse reaction iw 18:47 Drug: metroNIDAZOLE PO 500 mg Route: PO; me1 19:00 Follow up: Response: No adverse reaction iw 10/14 07:43 Not Given (Other Intervention Used): Ciprofloxacin IVPB 400 mg 200 ml IVPB once over 60 iw mins 07:43 Not Given (Other Intervention Used): metroNIDAZOLE IVPB 500 mg 100 ml IVPB at 200 ml/hr iw once over 30 mins 07:47 Not Given (Other Intervention Used): morphine IVP or IV 4 mg IVP once over 4 mins iw Medication: 10/13 18:00 VIS not applicable for this client. iw Outcome: 15:37 Decision to Hospitalize by Provider. rn 18:08 Admitted to Med/surg accompanied by nurse, via wheelchair, room 424, Report called to me1 SHASHANK Pablo 18:08 Condition: stable 18:08 Instructed on the need for admit. 18:47 Patient left the ED. me1 Signatures: Dispatcher [employer] EDMyra Stover, RN RN iw Jason Veliz MD MD rn Swanson, Donovan ds4 Shanon Roberts Clarissa, RN RN cm10 Ema Daniels RN RN me1
[2022-10-13] MEDS ORDERED: ACETAMINOPHEN 650MG/RECT SUPP PR PRN (17:24)
[2022-10-13] MEDS: PIPER TAZO 3.375 GM in NA CHLORIDE 0.9% 100 ML IV SCH (17:30)
[2022-10-13] MEDS ORDERED: NA CHLORIDE 0.9% 1,000 ML IV SCH (18:00)
[2022-10-13 18:39] VITALS: BMI 31.0
[2022-10-13] MEDS ORDERED: CIPROFLOXACIN HCL 500 MG TAB ONE (18:54)
[2022-10-13] MEDS ORDERED: metroNIDAZOLE 500 MG TABLET ONE (18:54)
--- NOTE | 2022-10-13 19:39 | P.HP ---
Certification for Inpatient Patient admitted to: Inpatient With expected LOS: >2 Midnights Patient will require the following post-hospital care: None Practitioner: I am a practitioner with admitting privileges, knowledge of patient current condition, hospital course, and medical plan of care. Services: Services provided to patient in accordance with Admission requirements found in Title 42 Section 412.3 of the Code of Federal Regulations Patient History Date of Service: 10/13/22 Reason for admission: Abd pain History of Present Illness: Patient is a 67-year-old male with a past medical history significant for diverticulitis, DVT, PE who presents with complaint of generalized abdominal pain that has been ongoing for the past 1 month. Patient rated pain as 9/10 in severity and described pain as sharp in quality. Patient indicated that pain radiates to his back. Patient reported associated signs and symptoms of chills, nausea, vomiting and abdominal distention. Patient reported that he was taken off Ozempic for weight loss 1 month by his PCP. Patient currently denies any other signs and symptoms. Symptoms are aggravated or relieved by nothing. Patient decided to present to the hospital due to worsening symptoms. Allergies NKDA Allergy (Uncoded 10/19/20 14:43) Unknown Home Medications: Docusate Sodium [Stool Softener] 100 mg PO BID 10/19/20 Ferrous Sulfate [Iron] 65 mg PO DAILY 10/19/20 Glucosam/Chond/MSM/Scandia/Hyal [Glucosamine-Chondr Complex Tab] 1 each PO DAILY 10/19/20 Magnesium Oxide [Magnesium] 500 mg PO DAILY 10/19/20 Pravastatin Sodium 20 mg PO DAILY 10/19/20 Rivaroxaban [Xarelto] 15 mg PO DAILY 10/19/20 Tamsulosin [Flomax] 0.4 mg PO DAILY 10/19/20 Vit C/E/Zn/Coppr/Lutein/Zeaxan [Preservision Areds 2 Softgel] 1 each PO BID 10/19/20 - Past Medical/Surgical History Diabetic: No -: DVT -: PE -: Diverticulitis -: hernia repair X 4 -: left elbow replacement -: face surgery X 2 - Social History Smoking Status: Former smoker Alcohol use: No CD- Drugs: No Caffeine use: Yes Place of Residence: Home Review of Systems General: Chills Eyes: Unremarkable ENT: Unremarkable Respiratory: Unremarkable Cardiovascular: Unremarkable Gastrointestinal: Nausea, Vomiting, Abdominal Pain, Distention Genitourinary: Unremarkable Musculoskeletal: Unremarkable Integumentary: Unremarkable Neurological: Unremarkable Lymphatics: Unremarkable Physical Examination - Physical Exam General: Alert, In no apparent distress, Oriented x3, Cooperative HEENT: Atraumatic, PERRLA, Mucous membr. moist/pink, EOMI, Sclerae nonicteric Neck: Supple, 2+ carotid pulse no bruit, No LAD, Without JVD or thyroid abnormality Respiratory: Clear to auscultation bilaterally, Normal air movement Cardiovascular: No edema, Regular rate/rhythm, Normal S1 S2 Capillary refill: <2 Seconds Gastrointestinal: Normal bowel sounds, Distended, Tenderness Musculoskeletal: No clubbing, No swelling, No tenderness Integumentary: No rashes, No significant lesion Neurological: Normal speech, Normal tone, Normal affect Lymphatics: No axilla or inguinal lymphadenopathy - Studies Laboratory Data (last 24 hrs) 10/13/22 10/13/22 13:26 13:26 WBC 13.70 H Hgb 14.2 Hct 41.7 Plt Count 395 Sodium 138 Potassium 3.8 BUN 16 Creatinine 0.85 Glucose 95 Total Bilirubin 0.4 AST 26 ALT 39 Alkaline Phosphatase 65 Lipase 2020 H Assessment and Plan - Plan --Acute diverticulitis. CT imaging indicates 5 cm length of transverse colon shows focal wall thickening and inflammation along the medial wall. This could be inflammatory secondary to diverticulitis or related to a mass. Recommend foll ow-up colonoscopy.". Patient placed on antibiotics. Gastroenterology consulted. Continue IV hydration. Will await further recommendations. --Acute pancreatitis. Lipase--2020. We will keep patient NPO. Continue IV hydration. Will reassess lipase in a.m. --Acute pain. We will manage pain with current pain medication regimen. --History of DVT\\PE. Patient on Xarelto at home. Patient currently NPO. Continue Lovenox subQ. --BPH\\hyperlipidemia\\LAURYN. Continue home medications when appropriate. --Class I obesity. Likely secondary to excess calories intake. Patient was recently taken off Ozempic for weight loss by his PCP. Patient counseled on weight reduction, diet and excise therapy. -- Nausea and vomiting. Antiemetics on board. Continue supportive care --DVT prophylaxis with Lovenox subQ. Discharge Plan: Home - Advance Directives Does patient have a Living Will: No Does patient have a Durable POA for Healthcare: No - Code Status/Comfort Care Code Status Assessed: Yes Physician Review: Patient Assessed, Agree with Above Assessment and Plan Critical Care: No
[2022-10-13] MEDS ORDERED: ENOXAPARIN 40 MG/0.4 ML SQ SCH (21:00)
[2022-10-13] MEDS ORDERED: ACETAMINOPHEN 325 MG TABLET PO ONE (21:19)
[2022-10-13 21:22] LABS: Magnesium 2.2 mg/dL (1.6-2.4); Phosphorus 2.8 mg/dL (2.5-4.9)
[2022-10-13] MEDS: MORPHINE 4 MG/ML SYR IV PRN (23:16)
[2022-10-13] MEDS: NA CHLORIDE 0.9% 1,000 ML IV SCH (23:17)
[2022-10-14] MEDS: PIPER TAZO 3.375 GM in NA CHLORIDE 0.9% 100 ML IV SCH ×3 (01:09→17:34)
[2022-10-14] MEDS: ONDANSETRON 4 MG/2 ML VIAL IV PRN ×2 (04:37→11:51)
[2022-10-14 05:29] LABS: Absolute Lymphocytes (CBC) 2.3 K/uL (0.7-4.9); Hematocrit 35.6 % (39.6-49.0); Lymphocytes % 19.3 % (15.3-44.8); MCV 88.6 fL (80-100); MPV 6.9 fL (7.6-11.3); Platelets 328 thou/uL (152-406); RBC Red Blood Cell Count 4.02 M/uL (4.33-5.43)
[2022-10-14] MEDS: LORazepam 2 MG/ML VIAL IV PRN ×2 (05:34→20:42)
[2022-10-14] MEDS: NA CHLORIDE 0.9% 1,000 ML IV SCH ×4 (05:34→18:25)
[2022-10-14 06:03] LABS: Potassium 3.6 mEq/L (3.5-5.1)
[2022-10-14] MEDS ORDERED: KCL 20 MEQ/100 mL IVPB 20 MEQ/100 ML BAG IV ONE (08:00)
[2022-10-14] MEDS: MORPHINE 4 MG/ML SYR IV PRN (08:28)
--- NOTE | 2022-10-14 17:48 | P.PN ---
Subjective Date of Service: 10/14/22 Chief Complaint: Abd pain Overnight, he spiked a temperature to 106.1 F, which responded to acetaminophen. He was afebrile this morning on rounds. He reports persistent generalized abdominal pain. He describes it as a dull aching and grades at a 5/10 in severity. He denies any chills, chest pain, shortness of breath, or palpitations. He denies any nausea, vomiting, or change in bowel habits. Review of Systems 10-point ROS is otherwise unremarkable Gastrointestinal: Abdominal Pain Physical Examination - Vital Signs Temperature: 97.7 F Blood Pressure: 123/66 Pulse: 73 Respirations: 16 Pulse Ox (%): 95 - Physical Exam General: Alert, In no apparent distress, Oriented x3 HEENT: Atraumatic, Mucous membr. moist/pink, Sclerae nonicteric Neck: JVD not distended Respiratory: Clear to auscultation bilaterally, Normal air movement Cardiovascular: No edema, Regular rate/rhythm, Normal S1 S2, No gallops, No rubs, No murmurs Gastrointestinal: Normal bowel sounds, Soft and benign, Non-distended, Tenderness (generalized) Musculoskeletal: No clubbing Integumentary: No rashes Neurological: Normal speech, Normal affect Assessment And Plan - Plan # Sepsis secondary to Tranverse Colitis # Possible Superimposed Acute Pancreatitis He met SIRS criteria based on temperature > 100.9 F and WBC > 12,000, and the suspected source is colitis. - Sepsis order set was initiated - Initial Lactate was 0.8 - Blood cultures drawn - Broad spectrum antibiotics started: Piperacillin-Tazobactam - In regards to fluids: - 30 mL/kg of IV fluids was not administered given SBP > 90, MAP > 65, lactic acid < 4 - Radiology: - CT abdomen/pelvis = "5 cm length of transverse colon shows focal wall thickening and inflammation along the medial wall. This could be inflammatory secondary to diverticulitis or related to a mass. Recommend follow-up colonoscopy." - Consulted Gastroenterology and spoke with Dr. Pantoja - recommendations appreciated - Recommended outpatient colonoscopy in 4-6 weeks - Start on clear liquid diet and advance as tolerated - Continue IV fluids and PRN pain control # History of DVT/PE - Continue home rivaroxaban # Dyslipidemia - Continue home atorvastatin Kevin Marin M.D.
[2022-10-14] MEDS: RIVAROXABAN 15 MG TABLET PO SCH (18:20)
[2022-10-14] MEDS: ATORVASTATIN 40 MG TAB PO SCH (20:42)
[2022-10-15] MEDS: PIPER TAZO 3.375 GM in NA CHLORIDE 0.9% 100 ML IV SCH ×3 (00:47→16:41)
[2022-10-15] MEDS: NA CHLORIDE 0.9% 1,000 ML IV SCH ×5 (00:48→20:00)
[2022-10-15 04:10] LABS: Specific Gravity 1.012 (1.005-1.030); Urine Bacteria None Seen /HPF (<20); Urine Bilirubin NEGATIVE (Negative); Urine Blood Negative (Negative); Urine Clarity Clear (Clear); Urine Color Light-Yellow (Yellow); Urine Glucose NEGATIVE (Negative); Urine Protein NEGATIVE (Negative); Urine RBC <5 /HPF (None Seen); Urine Urobilinogen Normal (Normal)
[2022-10-15 05:46] LABS: Absolute Lymphocytes (CBC) 2.5 K/uL (0.7-4.9); Hematocrit 33.7 % (39.6-49.0); Lymphocytes % 22.3 % (15.3-44.8); MCV 88.1 fL (80-100); MPV 7.1 fL (7.6-11.3); Platelets 305 thou/uL (152-406); RBC Red Blood Cell Count 3.82 M/uL (4.33-5.43)
[2022-10-15 05:49] LABS: Potassium 3.7 mEq/L (3.5-5.1)
[2022-10-15] MEDS: MORPHINE 4 MG/ML SYR IV PRN ×3 (08:35→21:05)
[2022-10-15] MEDS: ONDANSETRON 4 MG/2 ML VIAL IV PRN (08:35)
[2022-10-15] MEDS ORDERED: POTASSIUM 25 MEQ EFFERV TAB PO ONE (09:00)
--- NOTE | 2022-10-15 13:06 | P.PN ---
Subjective Date of Service: 10/15/22 Chief Complaint: Abd pain He remained afebrile overnight. His abdominal pain has improved somewhat. This morning, he grades the pain a 5/10 in severity. He states that the pain is generalized. He denies any fevers, chills, chest pain, shortness of breath, or palpitations. He denies any nausea, vomiting, or diarrhea. Review of Systems 10-point ROS is otherwise unremarkable Gastrointestinal: Abdominal Pain Physical Examination - Vital Signs Temperature: 98.5 F Blood Pressure: 136/85 Pulse: 71 Respirations: 18 Pulse Ox (%): 96 Assessment And Plan - Plan - Physical Exam General: Alert, In no apparent distress, Oriented x3 HEENT: Atraumatic, Mucous membr. moist/pink, Sclerae nonicteric Neck: JVD not distended Respiratory: Clear to auscultation bilaterally, Normal air movement Cardiovascular: No edema, Regular rate/rhythm, No murmurs Gastrointestinal: Normal bowel sounds, Soft and benign, Non-distended, Tenderness (minimal generalized) Musculoskeletal: No clubbing Integumentary: No rashes Neurological: Normal speech, Normal affect # Sepsis secondary to Tranverse Colitis # Possible Superimposed Acute Pancreatitis He met SIRS criteria based on temperature > 100.9 F and WBC > 12,000, and the suspected source is colitis. - Sepsis order set was initiated - Initial Lactate was 0.8 - Blood cultures drawn - Broad spectrum antibiotics started: Piperacillin-Tazobactam - In regards to fluids: - 30 mL/kg of IV fluids was not administered given SBP > 90, MAP > 65, lactic acid < 4 - Radiology: - CT abdomen/pelvis = "5 cm length of transverse colon shows focal wall thickening and inflammation along the medial wall. This could be inflammatory secondary to diverticulitis or related to a mass. Recommend follow-up colonoscopy." - Consulted Gastroenterology and spoke with Dr. Pantoja - recommendations appreciated - Recommended outpatient colonoscopy in 4-6 weeks - Advance diet as tolerated - Continue IV fluids and PRN pain control # History of DVT/PE - Continue home rivaroxaban # Dyslipidemia - Continue home atorvastatin Kevin Marin M.D.
[2022-10-15] MEDS: LORazepam 2 MG/ML VIAL IV PRN ×2 (13:44→19:56)
[2022-10-15] MEDS: RIVAROXABAN 15 MG TABLET PO SCH (16:41)
[2022-10-15] MEDS: ATORVASTATIN 40 MG TAB PO SCH (20:00)
[2022-10-16] MEDS: PIPER TAZO 3.375 GM in NA CHLORIDE 0.9% 100 ML IV SCH ×2 (01:03→08:30)
[2022-10-16] MEDS: MORPHINE 4 MG/ML SYR IV PRN ×2 (01:03→04:26)
[2022-10-16] MEDS: NA CHLORIDE 0.9% 1,000 ML IV SCH (04:21)
[2022-10-16 05:02] LABS: Magnesium 2.1 mg/dL (1.6-2.4); Phosphorus 2.6 mg/dL (2.5-4.9); Potassium 3.9 mEq/L (3.5-5.1)
[2022-10-16 07:57] VITALS: BP 138/87; TEMP 97.6
[2022-10-16] MEDS ORDERED: POTASS/SODIUM PHOSPHATE 1 PKT POWD.PACK PO SCH (08:00)
[2022-10-16] MEDS: ONDANSETRON 4 MG/2 ML VIAL IV PRN (08:29)
[2022-10-16 08:33] VITALS: O2SAT 92
--- NOTE | 2022-10-16 08:48 | P.DS ---
Admission Date: 10/13/22 Discharge Date: 10/16/22 Disposition: ROUTINE DISCHARGE Discharge Condition: GOOD Reason for Admission: Abd pain Consultations: 1. Gastroenterology Hospital Course: DIAGNOSES: # Sepsis secondary to Tranverse Colitis # Possible Superimposed Acute Pancreatitis # History of DVT/PE # Dyslipidemia # Fatty Liver # Small Umbilical Hernia HOSPITAL COURSE: Mr. Adelfo Weller is a pleasant 67 year old male with a past medical history significant for prior DVT/PE and dyslipidemia who was admitted to the [facility] on 10/13/2022 for abdominal pain. He was admitted to the Medicine service. Upon further evaluation, his CT abdomen/pelvis revealed, "5 cm length of transverse colon shows focal wall thickening and inflammation along the medial wall. This could be inflammatory secondary to diverticulitis or related to a mass. Recommend follow-up colonoscopy." He was placed NPO, started on IV antibiotics/fluids, and PRN pain medication. Gastroenterology was consulted and he was evaluated by Dr. Pantoja. He recommended outpatient follow-up with a colonoscopy in 4 weeks. Over the course of his hospitalization, his diet was advanced and his symptoms improved significantly. This morning, he stated that he felt significantly better and would like to be discharged home. On 10/16/2022, he was seen on rounds and deemed medically stable for discharge. He was discharged with instructions to schedule follow-up appointments with his PCP (Dr. Powers), with Gastroenterology (Dr. Pantoja), and with General Surgery (Dr. Elizalde). He was provided prescriptions for amoxicillin-clavulanate. He was given the opportunity to ask questions and reported no further questions. Furthermore, all questions were answered to the best of my ability. A copy of this discharge summary will be sent to the above providers to facilitate continuity of care. Today, I personally spent 25 minutes on his case, of which greater than 50% of the time was spent in patient education, counseling, and coordination of care as described above. - Physical Exam General: Alert, In no apparent distress, Oriented x3 HEENT: Atraumatic, Mucous membr. moist/pink, Sclerae nonicteric Neck: JVD not distended Respiratory: Clear to auscultation bilaterally, Normal air movement Cardiovascular: No edema, Regular rate/rhythm, No murmurs Gastrointestinal: Normal bowel sounds, Soft, Non-distended, No tenderness Musculoskeletal: No clubbing Integumentary: No rashes Neurological: Normal speech, Normal affect Vital Signs/Physical Exam: Temp Pulse Resp BP Pulse Ox 97.6 F 68 16 138/87 95 10/16/22 07:56 10/16/22 07:56 10/16/22 07:56 10/16/22 07:56 10/16/22 07:56 Laboratory Data at Discharge: WBC 11.30 thou/uL (4.3-10.9) H 10/15/22 05:13 Hgb 11.6 g/dL (13.6-17.9) L 10/15/22 05:13 Hct 33.7 % (39.6-49.0) L 10/15/22 05:13 Plt Count 305 thou/uL (152-406) 10/15/22 05:13 Sodium 136 mEq/L (136-145) 10/16/22 04:30 Potassium 3.9 mEq/L (3.5-5.1) 10/16/22 04:30 BUN 7 mg/dL (7-18) 10/16/22 04:30 Creatinine 0.92 mg/dL (0.70-1.30) 10/16/22 04:30 Glucose 116 mg/dL (74-106) H 10/16/22 04:30 Phosphorus 2.6 mg/dL (2.5-4.9) 10/16/22 04:30 Magnesium 2.1 mg/dL (1.6-2.4) 10/16/22 04:30 Total Bilirubin 0.4 mg/dL (0.2-1.0) 10/13/22 13:26 AST 26 U/L (15-37) 10/13/22 13:26 ALT 39 U/L (16-61) 10/13/22 13:26 Alkaline Phosphatase 65 U/L (45-117) 10/13/22 13:26 Triglycerides 88 mg/dL (<150) 10/14/22 05:05 Cholesterol 159 mg/dL (<200) 10/14/22 05:05 HDL Cholesterol 51 mg/dL (40-60) 10/14/22 05:05 Cholesterol/HDL Ratio 3.12 10/14/22 05:05 Lipase 641 U/L (13-75) H 10/14/22 05:05 Home Medications: Docusate Sodium [Stool Softener] 100 mg PO BID 10/19/20 Ferrous Sulfate [Iron] 65 mg PO DAILY 10/19/20 Magnesium Oxide [Magnesium] 500 mg PO DAILY 10/19/20 Rivaroxaban [Xarelto*] 15 mg PO DAILY 10/19/20 Atorvastatin Calcium 40 mg PO BEDTIME 10/14/22 Amox/Clavulanate [Augmentin 875-125 Tab] 875 mg PO BID 12 Days #24 tab 10/16/22 New Medications: Amox/Clavulanate [Augmentin 875-125 Tab] 875 mg PO BID 12 Days #24 tab Physician Discharge Instructions: 1. Please call and schedule a follow-up appointment with your PCP (Dr. Powers) in 3-5 days - Your blood work showed mild anemia. Please discuss with your PCP for further evaluation. 2. Please call and schedule a follow-up appointment with Gastronterology (Dr. Pantoja) in 5-7 days - As we discussed, Please have him schedule you for a colonoscopy in about 4 weeks to make sure to evaluate for colon cancer - Your CT scan showed fatty liver. Please discuss with your [employer] 3. Please call and schedule a follow-up appointment with General Surgery (Dr. Elizalde) in 5-7 days - You have a small hernia near your belly button. Please follow-up with Dr. Elizalde to discuss risks/benefits of surgery to repair the hernia Diet: AHA Activity: Ad phong Followup: Jose Alejandro Powers MD [Primary Care Provider] - Wilbert Pantoja MD [OUTSIDE PHYSICIAN] - Ezio Elizalde MD [ACTIVE - CAN ADMIT] - Time spent managing pt's care (in minutes): 25
[2022-10-16] MEDS ORDERED: POTASSIUM CL SA 10 MEQ TAB PO ONE (09:00)
== END 2022-10-16 10:39 | disposition home or self-care (01) | DRG 871 ==
LOC: ER 11:31 → ERHOLD 17:22 → 4TH 17:52
PROVIDERS: ADMIT Internal Medicine; ATTEND Internal Medicine
DX: A41.9 Sepsis, unspecified organism (principal); K85.90 Acute pancreatitis without necrosis or infection, unspecified; K57.92 Diverticulitis of intestine, part unspecified, without perforation or abscess without bleeding; N40.0 Benign prostatic hyperplasia without lower urinary tract symptoms; E78.5 Hyperlipidemia, unspecified; D50.9 Iron deficiency anemia, unspecified; K76.0 Fatty (change of) liver, not elsewhere classified; E66.09 Other obesity due to excess calories; K52.89 Other specified noninfective gastroenteritis and colitis; Z79.01 Long term (current) use of anticoagulants; Z68.31 Body mass index [BMI] 31.0-31.9, adult; Z86.718 Personal history of other venous thrombosis and embolism; Z87.891 Personal history of nicotine dependence; Z86.711 Personal history of pulmonary embolism; Z79.899 Other long term (current) drug therapy; Z96.622 Presence of left artificial elbow joint
CPT/HCPCS: 36415; 74177; 80048; 80053; 80061; 81001; 83605; 83690; 83735; 84100; 85025; 87040; 96361; 96374; 99285; J1650; J2405; J2543; J3480; J7030; Q9967

== ENCOUNTER 2024-06-21 05:30 | Day surgery (SDC) | payer OTHER ==
[2024-06-16 10:21] LABS: Absolute Eosinophils 0.1 K/uL (0-0.5); Absolute Lymphocytes (CBC) 3.6 K/uL (0.7-4.9); Absolute Neutrophil 3.8 K/uL (1.8-8.0); Basophils % 0.3 % (0-1.3); Eosinophils % 1.6 % (0-4.4); Hematocrit 41.9 % (39.6-49.0); Hemoglobin 13.9 g/dL (13.6-17.9); Lymphocytes % 42.4 % (15.3-44.8); MCH 29.7 pg (27.0-35.0); MCHC 33.3 g/dL (32.0-36.0); MCV 89.1 fL (80-100); MPV 7.3 fL (7.6-11.3); Monocytes % 11.1 % (3.3-12.3); Neutrophils % 44.6 % (41.7-73.7); Nucleated Red Blood Cells % 0.2 % (0-0); Platelets 334 thou/uL (152-406); Red Cell Distribution Width 13.6 % (12.1-15.2)
[2024-06-16 10:38] LABS: Anion Gap 14.4 mEq/L (5.0-15.0); Potassium 4.4 mEq/L (3.5-5.1)
[2024-06-21] MEDS ORDERED: Ringers Lactate 1,000 ML IV ONE (05:53)
[2024-06-21] MEDS ORDERED: BUPIVACAINE 0.5% PF 10 ML VIAL ONE (06:31)
[2024-06-21] MEDS ORDERED: LIDOCAINE 1% MPF 5 ML VIAL ONE (06:31)
[2024-06-21] MEDS ORDERED: MIDAZOLAM HCL 2 MG/2 ML INJ ONE (06:31)
[2024-06-21] MEDS ORDERED: EPINEPHRINE 1 MG/ML VIAL ONE (06:32)
[2024-06-21] MEDS ORDERED: dexAMETHasone 10 MG/ML VIAL ONE ×2 (06:32→07:03)
[2024-06-21] MEDS ORDERED: FENTANYL CITR 100 MCG/2 ML ONE (06:32)
[2024-06-21] MEDS ORDERED: ROCURONIUM 50 MG/5 ML VIAL IV ONE (07:03)
[2024-06-21] MEDS ORDERED: LIDOCAINE 2% MPF 5 ML VIAL ONE (07:03)
[2024-06-21] MEDS ORDERED: ONDANSETRON 4 MG/2 ML VIAL ONE (07:03)
[2024-06-21] MEDS ORDERED: propofoL 200 MG/20 ML VIAL IV ONE (07:03)
[2024-06-21] MEDS ORDERED: KETOROLAC 30 MG/ML INJ ONE (07:03)
[2024-06-21] MEDS: CEFAZOLIN SODIUM 2 GM/VIAL ONE (07:05)
[2024-06-21] MEDS: EPINEPHRINE 1 MG/ML VIAL ONE (07:44)
[2024-06-21] MEDS ORDERED: MEPERIDINE HCL 25 MG/ML SYR ONE (08:43)
[2024-06-21] MEDS ORDERED: GLYCOPYRROLATE 0.2 MG/ML SYR ONE (08:54)
[2024-06-21] MEDS ORDERED: NEOSTIGMINE 1 MG/ML -10 ML VIAL ONE (08:54)
--- NOTE | 2024-06-21 09:52 | OP ---
Date of Procedure: 06/21/2024 Surgeon: Juan Price MD Preoperative Diagnoses: Right shoulder pain with impingement, probable rotator cuff tear. Some walker ges of acromioclavicular arthritis, possible biceps pathology. Postoperative Diagnoses: 1. Fraying of the undersurface of the rotator cuff and biceps anchor. 2. Subacromial impingement. 3. Rotator cuff tear. 4. No significantly downward projecting osteophytes from the acromioclavicular joint. Procedures Performed: 1. Right shoulder arthroscopy with limited debridement. 2. Mini open subacromial decompression with rotator cuff repair. Estimated Blood Loss: 20 cc. Complications: There were no complications. Specimens: No pathology specimen. Indications For Operation: Mr. 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 He has undergone cortico steroid injections as well. MRI demonstrates probable rotator cuff tear as well as other pathology. The patient has not had complete relief from conservative management and still has pain with some dy sfunctional activities. Risks, benefits, and alternatives and different methods of treating this wer e again discussed. At this time, he opts for operative intervention. The planned procedure as well as prolonged recovery and possible complications were all discussed in detail. He says he understand s things as presented and wishes to proceed. Description Of Procedure: The patient had a block in the holding area. He was then taken back to [facility] OR and general anesthesia was easily obtained by Anesthesia staff. Following this, he was then pos itioned in the beach chair position for arthroscopy. Right upper extremity was then prepped and drap ed in usual sterile fashion for the procedure. After this, a standard posterior portal was then made and the shoulder was examined. He was found to have some fraying of the undersurface of the rotator cuff as well as probable tear as well as some fraying of the biceps anchor. The biceps tendon itsel f did not appear to be degenerative, and there was no torn labrum. After this, a standard anterior a rthroscopy portal was then made, used as a working portal. The shaver was then used to shave the und ersurface of the rotator cuff gently as well as shaving of the biceps anchor. Following this, the sh oulder was again inspected and the posterior portal was then stapled. All gloves and equipment were changed as right upper extremity was then prepped again and attention was then turned to the shoulder . A standard vertical incision was made down carefully through skin and soft tissues. Meticulous he mostasis being maintained using Bovie electrocautery. This was then used as a working window. The l eading edge of the deltoid was taken off the acromion and allowed for visualization of the underlying structures. A Jac was used to protect the underlying structures as the saw was then used to do a standard anterior as well as subacromial acromioplasty as there was large projecting bony prominen ce. After this, attention was then turned to the clavicle. This was felt with the finger. Did not appear to have large or bulbous arthritic change there. It does not appear that the clavicle was cau sing any degree of impingement. Therefore, decision was made not to perform distal clavicle excision . Attention was then turned back to the underlying structures and the bursa was removed. The rotato r cuff was then inspected and detailed. There did appear to be a rather large tear in the anterior p ortion of the supraspinatus as well as probably some diffuse thinning. The tear was then debrided, w hich easily becomes a full-thickness tear and a suture anchor was placed. It was then repaired back in a watertight fashion. One additional suture was placed in the rotator cuff horizontally as well. After this, shoulder was brought through range of motion. There was found to be no further tear. T he wound was irrigated and the deltoid was then repaired back to the acromion via bone tunnels as wel l as oversewing with Vicryl. It was again irrigated and the skin was closed using Vicryl sutures, fo llowed by trice. The patient was then placed in Aquacel dressing, awakened, and taken to recovery room in good condition. No complication. SE/MODL Voice ID: [id number] Report ID: [id number]
[2024-06-21 11:33] VITALS: BP 121/60; TEMP 96.6; O2SAT 95
== END 2024-06-21 10:57 | disposition home or self-care (01) ==
LOC: OR 05:30
PROVIDERS: ATTEND Orthopaedic Surgery
PROC: 0RNJ4ZZ Release Right Shoulder Joint, Percutaneous Endoscopic Approach (ICD-10-PCS; 2024-06-21)
PROC: 0LM14ZZ Reattachment of Right Shoulder Tendon, Percutaneous Endoscopic Approach (ICD-10-PCS; 2024-06-21)
PROC: 0RBJ4ZZ Excision of Right Shoulder Joint, Percutaneous Endoscopic Approach (ICD-10-PCS; principal; 2024-06-21 07:00)
DX: M75.121 Complete rotator cuff tear or rupture of right shoulder, not specified as traumatic (principal); M19.011 Primary osteoarthritis, right shoulder
CPT/HCPCS: 29822; 85025; 80048; 36415; 23412; J2704; J2710; J2003 ×2; J2250; J3010; J1100 ×2; J2175; J0171 ×2; J2405; J7120